=== PATIENT | female | born 1980 | race Caucasian/White ===

== ENCOUNTER 2017-10-13 22:09 | Emergency (ER) | payer OTHER ==
[~2017-10-13] VITALS: Ht 175.3 cm; Wt 70.8 kg
[~2017-10-13 22:09] MED LIST: ACETAMINOPHEN-1 EAC1 PO; AZO CRANBERRY1 EACH PO; CARISOPRODOL 3350 MG PO; CIPROFLOXACIN500 M1 PO; IBUPROFEN 800800 MG PO; MOBIC7.5 M1 PO; PERCOCET 5-3251 EACH PO; ZOFRAN4 MG PO
[2017-10-13] MEDS ORDERED: PROZAC20 MG PO ×2 (22:26→22:27)
[2017-10-13 22:59] LABS: INFLUENZA A ANTIGEN None Detected (None Detect); INFLUENZA B ANTIGEN None Detected (None Detect)
[2017-10-13] MEDS ORDERED: PREDNISONE 10 M10 MG PO (23:01)
[2017-10-13] MEDS ORDERED: TESSALON PERLE100 MG PO (23:01)
[2017-10-13 23:11] VITALS: BP 141/89
== END 2017-10-13 23:11 | disposition home or self-care (01) ==
LOC: M.ERS 22:09
PROVIDERS: Physician Assistant
DX: J04.0 Acute laryngitis (principal); J06.9 Acute upper respiratory infection, unspecified; F17.210 Nicotine dependence, cigarettes, uncomplicated; F10.99 Alcohol use, unspecified with unspecified alcohol-induced disorder; Z88.1 Allergy status to other antibiotic agents; Z88.0 Allergy status to penicillin; Z88.2 Allergy status to sulfonamides; Z90.711 Acquired absence of uterus with remaining cervical stump

== ENCOUNTER 2017-12-05 17:40 | Emergency (ER) | payer OTHER ==
[~2017-12-05] VITALS: Ht 175.3 cm; Wt 72.6 kg
[~2017-12-05 17:40] MED LIST changes: +PREDNISONE 10 M10 MG PO; +PROZAC20 MG PO; +TESSALON PERLE100 MG PO
[2017-12-05] MEDS ORDERED: IBUPROFEN 600600 M1 PO (17:57)
[2017-12-05] MEDS ORDERED: WOMEN MULTIVIT1 EACH PO (17:57)
[2017-12-05] MEDS ORDERED: CLONAZEPAM 0.50.5 M1 PO (17:57)
[2017-12-05 18:46] VITALS: BP 121/80
== END 2017-12-05 18:47 | disposition home or self-care (01) ==
LOC: M.ERS 17:40
DX: M79.671 Pain in right foot (principal); F17.210 Nicotine dependence, cigarettes, uncomplicated; Z88.1 Allergy status to other antibiotic agents; Z88.2 Allergy status to sulfonamides; Z88.0 Allergy status to penicillin

== ENCOUNTER 2018-04-23 13:28 | Emergency (ER) | payer OTHER ==
[~2018-04-23] VITALS: Ht 175.3 cm; Wt 74.8 kg
[~2018-04-23 13:28] MED LIST changes: +CLONAZEPAM 0.50.5 M1 PO; +IBUPROFEN 600600 M1 PO; +WOMEN MULTIVIT1 EACH PO
[2018-04-23 15:10] VITALS: BP 112/68
== END 2018-04-23 15:11 | disposition home or self-care (01) ==
LOC: M.ERS 13:28
DX: S60.032A Contusion of left middle finger without damage to nail, initial encounter (principal); F17.210 Nicotine dependence, cigarettes, uncomplicated; Z90.49 Acquired absence of other specified parts of digestive tract; Z90.711 Acquired absence of uterus with remaining cervical stump; Z88.1 Allergy status to other antibiotic agents; Z88.2 Allergy status to sulfonamides; Z88.0 Allergy status to penicillin; W22.8XXA Striking against or struck by other objects, initial encounter; Y93.89 Activity, other specified; Y92.89 Other specified places as the place of occurrence of the external cause; Y99.8 Other external cause status

== ENCOUNTER 2020-05-08 01:11 | Emergency (ER) | payer OTHER ==
[~2020-05-08] VITALS: Ht 175.3 cm; Wt 81.7 kg
[2020-05-08] MEDS ORDERED: MEDROLDOSEPACK PO ×2 (02:31→02:32)
[2020-05-08] MEDS ORDERED: HYDROCODON-ACE1 EAC8 PO (02:31)
[2020-05-08] MEDS ORDERED: IBU600 MG PO (02:31)
[2020-05-08 02:43] VITALS: BP 116/68
== END 2020-05-08 02:45 | disposition home or self-care (01) ==
LOC: M.ERS 01:11
DX: E34.51 Complete androgen insensitivity syndrome (principal); F17.210 Nicotine dependence, cigarettes, uncomplicated; Z88.0 Allergy status to penicillin; Z88.2 Allergy status to sulfonamides; Z88.1 Allergy status to other antibiotic agents; Z90.49 Acquired absence of other specified parts of digestive tract; Z90.711 Acquired absence of uterus with remaining cervical stump

== ENCOUNTER 2021-07-01 12:00 | Emergency (ER) | payer OTHER, MEDICAID ==
[~2021-07-01] VITALS: Ht 172.7 cm; Wt 79.4 kg
[~2021-07-01 12:00] MED LIST changes: +HYDROCODON-ACE1 EAC8 PO; +IBU600 MG PO; +MEDROLDOSEPACK PO
[2021-07-01 12:58] VITALS: BP 119/50
== END 2021-07-01 12:59 | disposition home or self-care (01) ==
LOC: M.ERS 12:00
DX: S90.01XA Contusion of right ankle, initial encounter (principal); F17.210 Nicotine dependence, cigarettes, uncomplicated; Z90.711 Acquired absence of uterus with remaining cervical stump; Z90.49 Acquired absence of other specified parts of digestive tract; Z79.899 Other long term (current) drug therapy; Z88.1 Allergy status to other antibiotic agents; Z88.2 Allergy status to sulfonamides; Z88.0 Allergy status to penicillin; W22.8XXA Striking against or struck by other objects, initial encounter; Y93.89 Activity, other specified; Y92.89 Other specified places as the place of occurrence of the external cause; Y99.8 Other external cause status

== ENCOUNTER 2021-10-16 05:14 | Emergency (ER) | payer OTHER, MEDICAID ==
[~2021-10-16] VITALS: Ht 172.7 cm; Wt 72.6 kg
[2021-10-16 06:02] LABS: ABSOLUTE LYMPHOCYTES 0.4 thou/uL (0.8-5.3); ABSOLUTE MONOCYTES 0.9 thou/uL (0.0-1.2); ABSOLUTE NEUTROPHILS 6.2 thou/uL (1.6-8.1); BASOPHILS 0.3 %; EOSINOPHILS 0.4 %; HEMATOCRIT 40.7 % (37.0-47.0); HEMOGLOBIN 14.2 gm/dL (12.0-15.0); LYMPHOCYTES 5.1 %; MCH 33.9 pg (26.0-34.0); MCHC 34.8 g/dL (28.0-37.0); MCV 97.3 fL (80.0-100.0); MONOCYTES 12.1 %; MPV 8.3 fl. (7.2-11.1); NUCLEATED RBCS 0 /100WBC; PLATELET COUNT* 175 thou/uL (150-400); POLYS 82.1 %; RBC 4.18 mil/uL (4.20-5.00); RDW-CV 12.4 % (10.5-14.5); WBC 7.6 thou/uL (4.0-11.0)
[2021-10-16 06:06] LABS: CALCIUM 8.5 mg/dL (8.5-10.1); CREATININE 0.9 mg/dL (0.6-1.3); POTASSIUM 3.6 mmol/L (3.5-5.1)
[2021-10-16 06:35] LABS: URINE BILIRUBIN NEGATIVE (Negative); URINE BLOOD TRACE (Negative); URINE CLARITY CLEAR; URINE COLOR YELLOW; URINE GLUCOSE-RANDOM NEGATIVE (Negative); URINE KETONES 1+ (Negative); URINE LEUKOCYTES-REFLEX NEGATIVE (Negative); URINE NITRITE-REFLEX NEGATIVE (Negative); URINE PROTEIN NEGATIVE (Negative); URINE SPECIFIC GRAVITY <= 1.005 (1.005-1.030); URINE UROBILINOGEN 0.2 E.U./dl (0.2-1.0)
[2021-10-16 07:02] LABS: AMP/METHAMP Negative (Negative); BARBITURATES Negative (Negative); BENZODIAZEPINES Negative (Negative); METHADONE Negative (Negative); OPIATES Negative (Negative); PCP Negative (Negative); THC Negative (Negative)
[2021-10-16 10:14] LABS: COCAINE Negative (Negative)
[2021-10-16] MEDS ORDERED: HYDROCODON-ACE1 EAC7 PO (10:20)
[2021-10-16] MEDS ORDERED: ZOFRAN ODT4 MG DISSOLVE (10:20)
[2021-10-16 10:25] VITALS: BP 95/41
[2021-10-17] MEDS ORDERED: PERCOCET 7.5-31 EAC1 PO (21:07)
[2021-10-17] MEDS ORDERED: FLEXERIL PO (21:07)
[2021-10-17] MEDS ORDERED: HYDROCODON-ACE1 EAC8 PO (22:11)
== END 2021-10-16 10:25 | disposition home or self-care (01) ==
LOC: M.ERS 05:14
PROVIDERS: Emergency Medicine
DX: R10.31 Right lower quadrant pain (principal); F17.210 Nicotine dependence, cigarettes, uncomplicated; Z90.710 Acquired absence of both cervix and uterus; Z90.89 Acquired absence of other organs; Z90.49 Acquired absence of other specified parts of digestive tract; Z88.0 Allergy status to penicillin; Z88.2 Allergy status to sulfonamides; Z88.1 Allergy status to other antibiotic agents; Z88.8 Allergy status to other drugs, medicaments and biological substances

== ENCOUNTER 2021-10-17 20:26 | Emergency (ER) | payer OTHER, MEDICAID ==
[~2021-10-17] VITALS: Ht 172.7 cm; Wt 72.6 kg
[~2021-10-17 20:26] MED LIST changes: +HYDROCODON-ACE1 EAC7 PO; +ZOFRAN ODT4 MG DISSOLVE
[2021-10-17] MEDS ORDERED: PERCOCET 7.5-31 EAC1 PO (21:07)
[2021-10-17] MEDS ORDERED: FLEXERIL PO (21:07)
[2021-10-17] MEDS ORDERED: HYDROCODON-ACE1 EAC8 PO (22:11)
[2021-10-17 22:39] VITALS: BP 118/65
== END 2021-10-17 22:42 | disposition home or self-care (01) ==
LOC: M.ERS 20:26
DX: M54.9 Dorsalgia, unspecified (principal); R10.31 Right lower quadrant pain; R10.32 Left lower quadrant pain; F17.210 Nicotine dependence, cigarettes, uncomplicated; Z90.710 Acquired absence of both cervix and uterus; Z90.49 Acquired absence of other specified parts of digestive tract; Z79.899 Other long term (current) drug therapy; Z88.1 Allergy status to other antibiotic agents; Z88.2 Allergy status to sulfonamides; Z88.0 Allergy status to penicillin